=== PATIENT | male | born 1970 | race Caucasian/White ===

== ENCOUNTER → 2018-05-09 | Outpatient (CLI) | payer OTHER ==
--- NOTE | 2018-05-09 13:13 | XR ---
EXAMINATION TYPE: XR lumbosacral spine min 4V DATE OF EXAM: 05/09/2018 CLINICAL HISTORY: Increasing chronic low back pain. TECHNIQUE: Frontal, lateral, and oblique images of the lumbar spine are obtained. COMPARISON: None FINDINGS: There are 5 lumbar type vertebral bodies identified. The lumbar spine shows slight levoco nvex scoliotic curvature without evidence of acute fracture or dislocation. Vertebral body heights an d disk space heights are within normal limits. Mild multilevel anterior spurring is seen. There is mu ltilevel facet arthropathy identified most prominent lower lumbar levels. The oblique images appear within normal limits. Staghorn type calculus left kidney noted filling calyces and pelvis. This confl uent calculus measures over 6 cm long axis. Incidental prominent multilevel spurring in the lower tho racic spine. IMPRESSION: As above. Staghorn type left renal calculus is noted.
== END | disposition home or self-care (01) ==
LOC: RADXRYALE 12:53
PROVIDERS: ATTEND Internal Medicine
DX: M46.96 Unspecified inflammatory spondylopathy, lumbar region (principal); M41.9 Scoliosis, unspecified
CPT/HCPCS: 72110

== ENCOUNTER → 2018-11-14 | Outpatient (CLI) | payer OTHER ==
[2018-11-14 09:05] LABS: Appearance,Urine Clear (Clear); Bilirubin,Urine Negative (Negative); Blood,Urine Negative (Negative); Color,Urine Light Yellow; Glucose,Urine (UA) 4+ (Negative); Ketones,Urine Negative (Negative); Leukocyte Esterase,Urine Moderate (Negative); Mucus,Urine Rare /hpf; Nitrite,Urine Negative (Negative); PH, Urine 6.5 (5.0-8.0); Protein,Urine Trace (Negative); RBC,Urine 5 /hpf (0-5); Urobilinogen,Urine <2.0 mg/dL (<2.0); WBC,Urine 67 /hpf (0-5)
== END | disposition home or self-care (01) ==
LOC: LABPAT 08:08
PROVIDERS: ATTEND Urology
DX: Z01.812 Encounter for preprocedural laboratory examination (principal); N20.0 Calculus of kidney; R31.29 Other microscopic hematuria
CPT/HCPCS: 81001; 87086

== ENCOUNTER → 2018-11-15 | Outpatient (CLI) | payer OTHER | END | disposition home or self-care (01) | LOC: LABPAT 17:16 | PROVIDERS: ATTEND Urology | DX: Z01.810 Encounter for preprocedural cardiovascular examination (principal); N20.0 Calculus of kidney | CPT/HCPCS: 93005 ==

== ENCOUNTER 2018-11-20 06:14 | Observation (INO) | payer OTHER ==
--- NOTE | 2018-11-19 19:51 | P.GSHP ---
History of Present Illness H&P Date: 11/19/18 48 yo male with a large left renal stone[4.7cm] who comes for a left pcnl Alternative treatment have been discussed, Risks and complications have been discussed - Constitutional Constitutional: Reports chronic pain, Denies chills, Denies fever - EENT Eyes: denies blurred vision, denies pain Ears, nose, mouth and throat: Denies headache, Denies sore throat - Cardiovascular Cardiovascular: Denies chest pain, Denies shortness of breath - Respiratory Respiratory: Denies cough, Denies 7 - Gastrointestinal Gastrointestinal: Denies abdominal pain, Denies diarrhea, Denies nausea, Denies vomiting - Genitourinary (Female) Genitourinary: Denies dysuria, Denies hematuria - Genitourinary (Male) Genitourinary: Denies dysuria, Denies hematuria - Musculoskeletal Musculoskeletal: Denies myalgias - Integumentary Integumentary: Denies pruritus, Denies rash - Neurological Neurological: Denies numbness, Denies weakness - Psychiatric Psychiatric: Denies anxiety, Denies depression - Endocrine Endocrine: Denies fatigue, Denies weight change Past Medical History Past Medical History: Diabetes Mellitus, Hyperlipidemia, Hypertension Additional Past Medical History / Comment(s): OFF INSULIN SINCE 08/2018 D/T IMPROVED BS CONTROL. HX KIDNEY STONES, CURRENT LT KIDNEY STONE. History of Any Multi-Drug Resistant Organisms: None Reported Past Surgical History: Tonsillectomy Past Anesthesia/Blood Transfusion Reactions: No Reported Reaction Smoking Status: Never smoker - Past Family History Sister(s) Family Medical History: Cancer Medications and Allergies Home Medications Medication Instructions Recorded Confirmed Type Acetaminophen [Tylenol Arthritis] 650 mg PO Q6H PRN 11/15/18 11/15/18 History Aspirin [Adult Low Dose Aspirin EC] 81 mg PO DAILY 11/15/18 11/15/18 History Atorvastatin Calcium [Lipitor] 40 mg PO DAILY 11/15/18 11/15/18 History Empagliflozin [Jardiance] 25 mg PO DAILY 11/15/18 11/15/18 History Ergocalciferol [Vitamin D2] 50,000 unit PO MO 11/15/18 11/15/18 History Lisinopril [Zestril] 40 mg PO DAILY 11/15/18 11/15/18 History metFORMIN HCL [metFORMIN HCL ER] 750 mg PO PC-SUPPER 11/15/18 11/15/18 History Allergies Allergy/AdvReac Type Severity Reaction Status Date / Time No Known Allergies Allergy Verified 11/15/18 10:39 Surgical - Exam - General well developed, well nourished - Eyes PERRL - ENT no hearing loss - Neck no masses, trachea midline - Respiratory normal expansion, normal respiratory effort - Cardiovascular Rhythm: regular - Abdomen Abdomen: soft, non tender - Genitourinary normal penis with no external lesions, testicles present - Integumentary no rash - Neurologic normal coordination, normal sensation - Musculoskeletal normal gait, normal posture - Psychiatric oriented to time, oriented to person, oriented to place, speech is normal, memory intact Results - Imaging CT scan - abdomen: report reviewed, image reviewed CT scan - pelvis: report reviewed, image reviewed Assessment and Plan Assessment: Impression: Large left renal stone Plan PCNL left
[~2018-11-20 06:14] MED LIST: DEXAMETHASONE SOD PHOSPHATE 10 MG/ML 1 ML VIAL IV ONE; LIDOCAINE 1% 20 ML VIAL (10MG/ML) FOR IV START INTRADERMA PRN; MIDAZOLAM 2 MG/2 ML VIAL IV PRN; ONDANSETRON 4 MG/2 ML VIAL IVP ONE; fentaNYL (PF) 50 MCG/ML 2 ML AMP IV PRN
--- NOTE | 2018-11-20 07:09 | XR ---
EXAMINATION TYPE: XR KUB DATE OF EXAM: 11/20/2018 6:39 AM CLINICAL HISTORY: Left-sided kidney stone, presurgical study. TECHNIQUE: Single supine KUB image of the abdomen is obtained. COMPARISON: None. FINDINGS: Prominent left-sided nephrolithiasis with at least 3 large calculi likely multiple smaller calculi. Superior calculus measures 3.1 cm long axis. Confluent area of stone burden measures 5.8 cm in craniocaudal dimension by 4.5 cm transversely. No definitive right-sided nephrolithiasis. Overall nonobstructive bowel gas pattern. Visualized osseous structures are intact. IMPRESSION: Prominent left-sided nephrolithiasis.
[2018-11-20 07:11] LABS: Glucose,Whole Blood 180 mg/dL (75-99)
[2018-11-20] MEDS: LACTATED RINGERS 1,000 ML IV SCH (07:12)
[2018-11-20] MEDS ORDERED: SUCCINYLCHOLINE CHLORIDE VIAL 200 MG/10 ML VIAL IV ONE (07:52)
[2018-11-20] MEDS ORDERED: LIDOCAINE 1% INJ 10MG/ML (20 ML MDV) ONE (07:52)
[2018-11-20] MEDS ORDERED: MIDAZOLAM 2 MG/2 ML VIAL ONE (07:52)
[2018-11-20] MEDS ORDERED: GLYCOPYRROLATE 0.2 MG/ML 2 ML VIAL ONE (07:52)
[2018-11-20] MEDS ORDERED: ROCURONIUM BROMIDE 10 MG/ML 10 ML VIAL IV ONE (07:52)
[2018-11-20] MEDS ORDERED: PROPOFOL 10 MG/ML 20 ML VIAL IV ONE (07:52)
[2018-11-20] MEDS ORDERED: PHENYLEPHRINE-0.9% NACL SYG 1 MG/10 ML SYRINGE ONE (07:52)
[2018-11-20] MEDS ORDERED: NEOSTIGMINE 1 MG/ML 10 ML VIAL ONE (07:52)
[2018-11-20] MEDS ORDERED: fentaNYL (PF) 50 MCG/ML 2 ML AMP ONE (07:52)
[2018-11-20] MEDS ORDERED: IOHEXOL 350 MG/ML 50 ML in EMPTY BAG 1 BAG IRRIGATION ONE (08:40)
[2018-11-20] MEDS ORDERED: LACTATED RINGERS 1,000 ML IV ONE (10:27)
[2018-11-20] MEDS ORDERED: MAG HYDROX/AL HYDROX/SIMETH 30 ML CUP PO PRN (10:39)
[2018-11-20] MEDS ORDERED: ACETAMINOPHEN TAB 325 MG TAB PO PRN (10:39)
[2018-11-20] MEDS ORDERED: ONDANSETRON 4 MG/2 ML VIAL IVP PRN (10:39)
[2018-11-20] MEDS ORDERED: NALOXONE 0.4 MG/ML 1 ML VIAL IV PRN (10:40)
[2018-11-20] MEDS ORDERED: HYDROmorphone PCA 10 MG/50 ML BAG IV PRN (10:40)
[2018-11-20] MEDS ORDERED: KETOROLAC 30 MG/ML 1 ML VIAL IVP PRN (10:40)
--- NOTE | 2018-11-20 10:49 | P.OP ---
Date of Procedure: 11/20/18 Preoperative Diagnosis: Left renal calculi large (greater than 4 cm) Postoperative Diagnosis: Same Procedure(s) Performed: Cystoscopy with placement of 5-Ivorian occluding balloon catheter, percutaneous nephrostomy (Dr. Paige) percutaneous nephrostolithotomy both ultrasound and laser technique, 20-Ivorian reentry nephrostomy tube placement Anesthesia: ABBIE Surgeon: Lupillo Chang Estimated Blood Loss (ml): 300 Pathology: other (Stone) Condition: stable Disposition: PACU Indications for Procedure: The patient is 48. He is a morbidly obese diabetic. He has a partial branch staghorn calculus over 4 cm in diameter in the left lower pole calyx causing pain he comes for percutaneous nephrostolithotomy Description of Procedure: The patient is brought to the operating suite. He is given a successful general endotracheal anesthesia on the transport gurney. Rolls were placed under his hips and knees placed in a frog position. A sterile prep and drape was administered. Cystoscopy with a 22-Ivorian sheath and Foroblique lens identifies a normal urethra. Prostate is not obstructing. There is a diverticulum the left lateral wall. The left ureteral orifice is identified and intubated with an 025 wire and over the wires passed a 5-Ivorian occluding balloon catheter up into the renal pelvis. A Gomez catheter, 16-Ivorian placed and secured to the ureteral catheter The patient's placed in prone position with care to airways and extremities. Dr. Paige performed percutaneous nephrostomy to a middle pole posterior calyx with some difficulty due to the impaction of the stone. Ithen am able to dilate the tract to 30-Ivorian. Through the middle pole calyx were able to access the stone that went into the renal pelvis and remove this with us. I then am able to access the lower pole calyx. The greater majority of the stone was removed through the rigid scope with the ultrasound anterior calyces in the lower pole. I then remove stone out of minor calyces in the lower pole using the flexible scope and laser. There is one more small calyx, Posterior and medial that I'm unable to access. Whether this is a tubular stones or calyceal diverticulum is indeterminate. Since I'm unable to get the stone I will terminate the procedure. Over the working wire and 20-Ivorian reentry nephrostomy tube was placed. Patient's awake and returned recovery in good condition. Blood loss is 300 mL. He tolerated procedure well.
[2018-11-20] MEDS ORDERED: HYDROmorphone 1 MG/ML 1 ML SYRINGE IVP ONE ×2 (10:56→11:02)
[2018-11-20 11:42] LABS: Glucose,Whole Blood 275 mg/dL (75-99)
[2018-11-20] MEDS ORDERED: INSULIN ASPART (NovoLOG) 100 UNIT/ML VIAL SQ ONE (11:57)
--- NOTE | 2018-11-20 12:38 | FL ---
EXAMINATION TYPE: FL Perc Nephrostomy New Access DATE OF EXAM: 11/20/2018 COMPARISON: NONE HISTORY: Hydronephrosis, ureteral obstruction with staghorn calculus. PROCEDURE: Maximal barrier technique was utilized. The skin overlying the left kidney was localized using fluor oscopy and the overlying skin prepped and draped. Skin shannon was made with a scalpel. Access was gain ed under fluoroscopy following 3 punctures, following placement of a ureteral occlusion balloon by e referring clinician and instillation of air in the renal collecting system with a 21-gauge needle t o the kidney. A suitable posterior calyx was chosen. A 0.018 inch wire was advanced. The access s ite was dilated and subsequently a sheath was advanced into the renal pelvis following dilation with balloon along the tract. Urine returned in the hub of the catheter. The patient underwent nephrolitho lisa by the referring clinician. The patient remained in stable condition without complication. e patient was discharged to observation. IMPRESSION: STATUS POST NEPHROSTOMY PLACEMENT FOR NEPHROLITHOTOMY WITH FLUOROSCOPIC GUIDANCE. THIS PROCEDURE PER FORMED BY THE UNDERSIGNED.
[2018-11-20 13:23] VITALS: BMI 38.2
[2018-11-20 17:17] LABS: Glucose,Whole Blood 176 mg/dL (75-99)
[2018-11-20] MEDS: metFORMIN 500 MG TAB PO SCH (17:37)
[2018-11-20] MEDS: SODIUM CHLORIDE 0.45% 1,000 ML IV SCH ×2 (17:38→22:01)
[2018-11-20 20:19] LABS: Glucose,Whole Blood 199 mg/dL (75-99)
[2018-11-20] MEDS: INSULIN ASPART (NovoLOG) 100 UNIT/ML VIAL SQ SCH (21:33)
[2018-11-20 21:41] LABS: Glucose,Whole Blood 175 mg/dL (75-99)
[2018-11-21 01:29] VITALS: RESP 16
[2018-11-21] MEDS: LACTATED RINGERS 1,000 ML IV SCH (01:54)
[2018-11-21] MEDS: SODIUM CHLORIDE 0.45% 1,000 ML IV SCH (03:56)
[2018-11-21 06:59] LABS: Glucose,Whole Blood 154 mg/dL (75-99)
[2018-11-21] MEDS: INSULIN ASPART (NovoLOG) 100 UNIT/ML VIAL SQ SCH ×2 (07:23→12:51)
[2018-11-21] MEDS: metFORMIN 500 MG TAB PO SCH (07:23)
[2018-11-21] MEDS ORDERED: Empagliflozin [Jardiance] PO SCH (09:00)
[2018-11-21] MEDS ORDERED: ATORVASTATIN 40 MG TAB PO SCH (09:00)
[2018-11-21] MEDS ORDERED: LISINOPRIL 20 MG TAB PO SCH (09:00)
--- NOTE | 2018-11-21 10:16 | P.DS ---
Providers Date of admission: 11/20/18 18:44 Expected date of discharge: 11/21/18 Attending physician: Lupillo Chang Primary care physician: Candice Duran [facility] Course: On the day of admission, the patient underwent a left percutaneous nephr olithotomy. One small calculus could not be accessed, but the stone was otherwise removed. The perioperative course was unremarkable. On the first postoperative day, the patient tolerated breakfast and reported only mild incisional discomfort. He was overall feeling quite well. The Gomez catheter was draining pink tinged urine. The nephrostomy tube bag had been emptied immediately prior to my arrival, and therefore it was difficult to assess the degree of hematuria. Procedures: Left percutaneous nephrolithotomy on 11/20/2018 Patient Condition at Discharge: Good Plan - Discharge Summary Discharge Rx Participant: No New Discharge Prescriptions: New Ketorolac [Toradol] 10 mg PO Q6HR #15 tab No Action metFORMIN HCL [metFORMIN HCL ER] 750 mg PO PC-SUPPER Lisinopril [Zestril] 40 mg PO DAILY Empagliflozin [Jardiance] 25 mg PO DAILY Atorvastatin Calcium [Lipitor] 40 mg PO DAILY Ergocalciferol [Vitamin D2] 50,000 unit PO MO Acetaminophen [Tylenol Arthritis] 650 mg PO Q6H PRN PRN Reason: Pain Aspirin [Adult Low Dose Aspirin EC] 81 mg PO DAILY Discharge Medication List Acetaminophen [Tylenol Arthritis] 650 mg PO Q6H PRN 11/15/18 [History] Aspirin [Adult Low Dose Aspirin EC] 81 mg PO DAILY 11/15/18 [History] Atorvastatin Calcium [Lipitor] 40 mg PO DAILY 11/15/18 [History] Empagliflozin [Jardiance] 25 mg PO DAILY 11/15/18 [History] Ergocalciferol [Vitamin D2] 50,000 unit PO MO 11/15/18 [History] Lisinopril [Zestril] 40 mg PO DAILY 11/15/18 [History] metFORMIN HCL [metFORMIN HCL ER] 750 mg PO PC-SUPPER 11/15/18 [History] Ketorolac [Toradol] 10 mg PO Q6HR #15 tab 11/21/18 [Rx] Follow up Appointment(s)/Referral(s): Lupillo Chang MD [STAFF PHYSICIAN] - 11/25/18 Activity/Diet/Wound Care/Special Instructions: Discharge home with nephrostomy tube. Instruct patient to irrigate nephrostomy tube as needed. Diet as tolerated. Drink plenty of fluids. No lifting or strenuous activity. Discharge Disposition: HOME SELF-CARE
[2018-11-21 12:02] LABS: Glucose,Whole Blood 161 mg/dL (75-99)
[2018-11-21 15:30] VITALS: BP 148/81; PULSE 94; TEMP 97.9
== END 2018-11-21 15:36 | disposition home or self-care (01) ==
LOC: OR 06:14 → 4SSUR 10:40 → OR 18:43 → 4SSUR 18:44
PROVIDERS: ADMIT Urology; ATTEND Urology
DX: N20.0 Calculus of kidney (principal); I10 Essential (primary) hypertension; E78.5 Hyperlipidemia, unspecified; E11.9 Type 2 diabetes mellitus without complications; E66.01 Morbid (severe) obesity due to excess calories; Z68.37 Body mass index [BMI] 37.0-37.9, adult; Z79.82 Long term (current) use of aspirin; Z79.84 Long term (current) use of oral hypoglycemic drugs; Z79.899 Other long term (current) drug therapy; Z87.442 Personal history of urinary calculi; Z80.9 Family history of malignant neoplasm, unspecified
CPT/HCPCS: 94760; 94762; 86900; 86901; 86850; 82365; 50432; 74018; 36415; 50081; G0378 ×2; C1769 ×4; C2628; C1894; J2250; J0330; J1100; J2710; J0690; J2405; J2001; J3010; J1885; J1170 ×2; J2370; J2704; Q9967

== ENCOUNTER → 2019-12-15 | Outpatient (CLI) | payer BC ==
--- NOTE | 2019-12-15 19:25 | XR ---
EXAMINATION TYPE: XR knee limited bilateral DATE OF EXAM: 12/15/2019 COMPARISON: NONE HISTORY: 49-year-old male chronic bilateral knee pain TECHNIQUE: 2 views each side FINDINGS: Moderate loss of cartilage and joint space in the left medial compartment with subchondral sclerosis and marginal spurring. There may be a slight genu varus deformity. Additional degenerative spurring i n the patellofemoral compartment. Small to moderate knee joint effusion. Mild tricompartmental degenerative spurring of the right with a moderate knee joint effusion. No acute fracture, subluxation, or dislocation. IMPRESSION: 1. Bilateral tricompartmental osteoarthrosis, greatest in the left medial compartment. There may be a slight genu varus deformity on the left. 2. Small to moderate bilateral knee joint effusions, right greater than left.
== END | disposition home or self-care (01) ==
LOC: RADXRYALE 13:12
PROVIDERS: ATTEND Internal Medicine
DX: M17.0 Bilateral primary osteoarthritis of knee (principal)

== ENCOUNTER → 2022-05-15 | Outpatient (CLI) | payer BC ==
--- NOTE | 2022-05-15 12:41 | MR ---
EXAMINATION TYPE: MR lumbar spine wo con DATE OF EXAM: 05/15/2022 COMPARISON: Lumbar sacral spine radiograph 05/09/2018. HISTORY: M48.062 lumbar stenosis TECHNIQUE: Multiplanar, multisequence images of the lumbar spine were acquired without IV contrast. FINDINGS: Chronic anterior wedging of the T12 vertebral body. Grade 1 anterolisthesis of L4 on L5 without evide nce of pars defects. No paraspinal masses are identified. Conus medullaris has a normal appearance. Multilevel disc desiccation. T12-L1: Large posterior disc osteophyte complex with facet arthropathy contribute to mild spinal rod l stenosis. Mild bilateral neural foraminal stenosis. L1-L2: Left central disc protrusion without significant spinal canal stenosis. The neural foramina ar e patent bilaterally. L2-L3: Broad-based disc bulge with facet arthropathy. The tube into mild spinal canal stenosis. The n eural foramina are patent bilaterally. L3-L4: Broad-based disc bulge with ligamentum flavum buckling and facet arthropathy contributing to m oderate spinal canal stenosis. The neural foramina are patent bilaterally. L4-L5: Grade 1 anterolisthesis of L4 on L5 with uncovering of the disc. Left subarticular zone disc p rotrusion. Facet arthropathy with ligamentum flavum buckling. There is moderate to severe spinal sten osis. The neural foramina are patent bilaterally. L5-S1: Central disc protrusion superimposed upon a broad-based disc bulge without significant central canal stenosis. The neural foramina are patent bilaterally. IMPRESSION: 1. Moderate to severe spinal canal stenosis at L4-L5 secondary to grade 1 anterolisthesis, left suba rticular zone disc herniation, facet arthropathy and ligament flavum buckling. 2. L1-L2 and L5-S1 disc herniations without significant central canal stenosis. 3. Multilevel degenerative disc disease and osteoarthritic changes as described above.
== END | disposition home or self-care (01) ==
LOC: RADMRIMAIN 10:49
PROVIDERS: ATTEND Psychiatry & Neurology Neurology
DX: M51.27 Other intervertebral disc displacement, lumbosacral region (principal); M47.816 Spondylosis without myelopathy or radiculopathy, lumbar region; M51.36 Other intervertebral disc degeneration, lumbar region; M48.062 Spinal stenosis, lumbar region with neurogenic claudication; M43.16 Spondylolisthesis, lumbar region
CPT/HCPCS: 72148

== ENCOUNTER → 2023-03-29 | Outpatient (CLI) | payer BC ==
--- NOTE | 2023-04-03 07:58 | CT ---
EXAMINATION TYPE: CT left knee - [facility] Protocol DATE OF EXAM: 03/29/2023 COMPARISON: None HISTORY: LT knee pain, pre-surgical. CT DLP: [address] of the left knee for [facility] preoperative procedure. FINDINGS: Moderate to severe degenerative narrowing involving all 3 compartments of the left knee. Associated s pur formation. No fracture or dislocation. Small joint effusion. Mild degenerative narrowing of the l eft hip and mild degenerative changes of the left ankle. No osseous lesions or soft tissue masses. IMPRESSION: 1. As above
== END | disposition home or self-care (01) ==
LOC: RADCTMAIN 15:54
PROVIDERS: ATTEND Orthopaedic Surgery
DX: M17.12 Unilateral primary osteoarthritis, left knee (principal); M21.161 Varus deformity, not elsewhere classified, right knee; M21.162 Varus deformity, not elsewhere classified, left knee; M16.12 Unilateral primary osteoarthritis, left hip; M19.072 Primary osteoarthritis, left ankle and foot

== ENCOUNTER → 2023-04-20 | Outpatient (CLI) | payer BC ==
[2023-04-20 15:59] LABS: Basophils # (A) 0.06 X 10*3/uL (0.00-0.10); Basophils % (A) 0.7 %; Eosinophils # (A) 0.19 X 10*3/uL (0.04-0.35); Eosinophils % (A) 2.1 %; HCT 50.8 % (39.6-50.0); HGB 16.1 g/dL (13.0-17.0); Lymphocytes # (A) 2.35 X 10*3/uL (0.90-5.00); Lymphocytes % (A) 26.1 %; MCH 27.6 pg (27.0-32.0); MCHC 31.7 g/dL (32.0-37.0); MCV 87.1 FL (80.0-97.0); Monocytes # (A) 0.76 X 10*3/uL (0.20-1.00); Monocytes % (A) 8.4 %; NRBC Per 100 WBC 0 X 10*3/uL (0.00-0.01); Neutrophils % (A) 60.9 %; Platelet Count 158 X 10*3/uL (140-440); RBC 5.83 X 10*6/uL (4.40-5.60); RDW 14.1 % (11.5-14.5); WBC 9.02 X 10*3/uL (4.50-10.00)
[2023-04-20 16:15] LABS: ALT 49 U/L (10-49); AST 27 U/L (14-35); Albumin 4.3 g/dL (3.8-4.9); Albumin/Globulin Ratio 1.54 Ratio (1.60-3.17); Alkaline Phosphatase 123 U/L (41-126); BUN/Creat Ratio 28.12 Ratio (12.00-20.00); Blood Urea Nitrogen 22.5 mg/dL (9.0-27.0); Calcium 11.1 mg/dL (8.7-10.3); Carbon Dioxide 24.7 mmol/L (21.6-31.8); Chloride 103 mmol/L (96-109); Globulin 2.8 g/dL (1.6-3.3); Glucose 354 mg/dL (70-110); Potassium 5.1 mmol/L (3.5-5.5); Sodium 140 mmol/L (135-145); Total Bilirubin 0.3 mg/dL (0.3-1.2); Total Protein 7.1 g/dL (6.2-8.2)
[2023-04-20 22:15] LABS: Appearance,Urine Clear (Clear); Bilirubin,Urine Negative (Negative); Blood,Urine Negative (Negative); Color,Urine Yellow (Yellow); Ketones,Urine Trace (Negative); Nitrite,Urine Negative (Negative); PH, Urine 6.5; Specific Gravity,Urine 1.029 (1.001-1.030); Urobilinogen,Urine 0.2 E.U./DL
[2023-04-20 22:20] LABS: Bacteria,Urine None Seen (None Seen)
== END | disposition home or self-care (01) ==
LOC: LABPAT 10:43
PROVIDERS: ATTEND Orthopaedic Surgery
DX: E11.9 Type 2 diabetes mellitus without complications (principal)
CPT/HCPCS: 80053; 81001; 83036; 85025; 87070

== ENCOUNTER 2023-05-30 09:53 | Day surgery (SDC) | payer BC ==
[~2023-05-30 09:53] MED LIST changes: +ALPRAZolam 0.25 MG TAB PO PRN; +ALPRAZolam 0.5 MG TAB PO PRN; +ASPIRIN 325 MG TAB PO ONE; -DEXAMETHASONE SOD PHOSPHATE 10 MG/ML 1 ML VIAL IV ONE; -LIDOCAINE 1% 20 ML VIAL (10MG/ML) FOR IV START INTRADERMA PRN; -MIDAZOLAM 2 MG/2 ML VIAL IV PRN; +NITROGLYCERIN SL TABS 0.4 MG TAB SUBLINGUAL PRN; -ONDANSETRON 4 MG/2 ML VIAL IVP ONE; +SODIUM CHLORIDE 0.9% 1,000 ML in EMPTY BAG 1 BAG IV SCH; -fentaNYL (PF) 50 MCG/ML 2 ML AMP IV PRN
[2023-05-30] MEDS: SODIUM CHLORIDE 0.9% 1,000 ML IV ONE (10:15)
[2023-05-30 10:45] LABS: Glucose,Whole Blood 203 mg/dL (70-110)
[2023-05-30] MEDS: INSULIN ASPART (NovoLOG) 100 UNIT/ML VIAL SQ ONE (10:48)
[2023-05-30 10:59] VITALS: RESP 16; TEMP 98.1
[2023-05-30] MEDS: fentaNYL (PF) 50 MCG/ML 2 ML AMP IVP ONE (13:18)
[2023-05-30] MEDS: MIDAZOLAM 2 MG/2 ML VIAL IVP ONE ×2 (13:18→13:36)
[2023-05-30] MEDS: LIDOCAINE 1% INJ 10MG/ML (20 ML MDV) SQ ONE (13:32)
[2023-05-30] MEDS: VERAPAMIL SYRINGE (5 MG/10 ML) INTRAARTER ONE (13:34)
[2023-05-30] MEDS: HEPARIN SODIUM 1,000 UN/ML (10ML VL) IV ONE (13:36)
[2023-05-30] MEDS: CLOPIDOGREL 75 MG TAB PO ONE (13:47)
[2023-05-30] MEDS: HEPARIN SODIUM 1,000 UN/ML (10ML VL) IVP ONE ×5 (13:47→14:47)
[2023-05-30] MEDS: IOPAMIDOL-370 100ML BTL INJ ONE ×4 (13:49→14:41)
[2023-05-30] MEDS: NITROGLYCERIN 1000MCG/10ML SYRINGE INTRACORON ONE ×3 (13:51→14:28)
[2023-05-30] MEDS ORDERED: PANTOPRAZOLE 40 MG TABLET PO PRN (15:13)
[2023-05-30] MEDS ORDERED: ACETAMINOPHEN TAB 325 MG TAB PO PRN (15:13)
[2023-05-30] MEDS ORDERED: ATROPINE SULFATE 0.1 MG/ML 10ML SYRINGE IV PRN (15:14)
[2023-05-30] MEDS ORDERED: ZOLPIDEM 5 MG TAB PO PRN (15:14)
[2023-05-30] MEDS ORDERED: MAG HYDROX/AL HYDROX/SIMETH 30 ML CUP PO PRN (15:14)
[2023-05-30] MEDS ORDERED: RX INFO: IV CONTRAST WAS GIVEN 1 EACH MISC MISCELLANE PRN (15:14)
--- NOTE | 2023-05-30 16:02 | P.PRCINT ---
Percutaneous Coronary Int. - Percutaneous Coronary Intervention Percutaneous Coronary Intervention: PROCEDURES PERFORMED: Left heart catheterization, bilateral coronary angiography, ultrasound guided arterial access, IVUS RCA, circumflex, PCI PLV with a 3.0 x 8mm Xience EUNICE, cutting balloon angioplasty OM1, PCI proximal OM1 with overlapping 3.25 x 18 and 3.25 x 8mm Xience EUNICE, post dilated with a 3.25mm NC balloon INDICATION: Abnormal stress test CONSENT:I have discussed the risks, benefits and alternative therapies for the above-mentioned procedure and for both sedation/analgesia as well as necessary blood product administration, if indicated, as they pertain to this patient. The patient has indicated understanding and acceptance of the risks and procedures discussed. PROCEDURE: After the risks, benefits and alternatives of the above mentioned procedure explained in detail with the patient, informed consent was obtained. Patient was taken to the catheterization lab and prepped and draped in usual fashion. Ultrasound guidance was used to assess for arterial access. 1% lidocaine was used to anesthetize the right radial artery. A 6-Austrian sheath was placed in the right radial artery using modified Seldinger technique and ultrasound guidance. Left coronary angiography was performed with a 5-Austrian JL 3.5 catheter and right coronary angiography was performed with a 5-Austrian FR5 catheter in various views. A 5-Austrian FR5 catheter was inserted into the left ventricle and pressure measurements were obtained. Ischemia was noted in the inferior and inferolateral wall and therefore decision was made to perform PCI of the PLV and OM1. Heparin was given for ACT greater than 250. A 6-Austrian AL 0.75 guide was used to engage the RCA. A 0.014 BMW wire was advanced in the distal PLV. Predilation was performed with a 2.5 x 8 mm balloon. Next a 3.0 by 8mm Xience EUNICE was placed in the proximal PLV. There was distal edge haziness however on intravascular ultrasound no dissection. Therefore recommended treating medically. Preintervention there was 90% stenosis and KEVIN-3 flow and postintervention there was less than 10% stenosis and KEVIN-3 flow. Next the decision was made to perform PCI of the OM1 branch. A 6-Austrian CLS 3.5 guide was used to engage the left main. A 0.014 BMW wire was advanced in the distal OM1 branch. Predilation was attempted with a 2.75 x 12mm noncompliant balloon however significant watermeloning. Next, intravascular ultrasound was performed which showed reference vessel 3.25 mm. Therefore 3.25 x 15 mm NC balloon again was attempted to predilate the lesion however watermeloning. Therefore cutting balloon angioplasty was performed with a 3.0 x 15 mm balloon. This achieved adequate expansion, predilation. Next a 3.25 x 18 mm Xience EUNICE was placed in the proximal 1 branch. The distal edge of the lesion was not covered and therefore additional 3.25 x 8 mm stent was placed. The stents were postdilated with a 3.25 noncompliant balloon. Repeat intravascular ultrasound showed well-expanded stent with no dissection. There is more distal OM1 40-50% stenosis felt best treated medically. Preintervention there was 90% stenosis and KEVIN-3 flow and postintervention there was less than 10% stenosis and KEVIN-3 flow. The right radial sheath was removed and a TR band was placed with hemostasis achieved. The patient tolerated the procedure well. Patient was transported back to the post catheterization holding area in stable condition. Conscious Sedation: Patient was monitored under the direct supervision of myself for conscious sedation using Versed and fentanyl for a total duration of 70 minutes HEMODYNAMICS: Aorta: 148/72 LV: 141/13, LVEDP 24 SELECTIVE CORONARY ARTERIOGRAPHY: LEFT MAIN: The left main is a large caliber vessel which bifurcates into the LAD and circumflex. There is no significant stenosis. LEFT ANTERIOR DESCENDING CORONARY ARTERY: LAD is a large caliber vessel which wraps around to the apex. There is diffuse mid to distal 40-50% LAD stenosis. Diagonal 2 has a 30-40% stenosis. LEFT CIRCUMFLEX CORONARY ARTERY: Left circumflex is a moderate to large caliber vessel. OM1 has a proximal 90% stenosis followed by mid OM1 50% stenosis. RIGHT CORONARY ARTERY: The right coronary artery is a large caliber vessel which gives off a PDA and PLV branch and is the dominant vessel. There is diffuse proximal mid RCA 20-30% stenosis and a more focal 90% proximal PLV stenosis. FINAL IMPRESSION: 1. CAD as described above including 90% PLV, 90% OM1, 40-50% LAD stenosis 2. S/p PCI PLV with a 3.0 x 8mm Xience EUNICE, cutting balloon angioplasty OM1, PCI proximal OM1 with overlapping 3.25 x 18 and 3.25 x 8mm Xience EUNICE, post dilated with a 3.25mm NC balloon 3. Elevated left sided filling pressures PLAN: 1. Aggressive risk factor modification per most recent ACC/AHA guidelines. 2. Continued dual antiplatelets with aspirin and Plavix for 6 months
[2023-05-30 19:13] VITALS: BP 137/73; PULSE 76
[2023-05-30] MEDS ORDERED: ATORVASTATIN 80 MG TAB PO SCH (21:00)
[2023-05-30] MEDS ORDERED: ATORVASTATIN 10 MG TAB PO SCH (21:00)
[2023-05-31] MEDS ORDERED: lisinopriL 20 MG TAB PO SCH (09:00)
[2023-05-31] MEDS ORDERED: TAMSULOSIN 0.4 MG CAP.ER.24H PO SCH (09:00)
[2023-05-31] MEDS ORDERED: amLODIPine 2.5 MG TAB PO SCH (09:00)
[2023-05-31] MEDS ORDERED: CLOPIDOGREL 75 MG TAB PO SCH (09:00)
[2023-05-31] MEDS ORDERED: ASPIRIN 81 MG PO SCH (09:00)
[2023-05-31] MEDS ORDERED: PROPRANOLOL LA 60 MG CAP.SA.24H PO SCH (09:00)
[2023-06-04] MEDS ORDERED: ERGOCALCIFEROL 1,250 MCG (50,000 IU) CAPSULE PO SCH (09:00)
== END 2023-05-30 18:59 | disposition home or self-care (01) ==
LOC: CATHCVL 09:53
PROVIDERS: ATTEND Internal Medicine
DX: I25.10 Atherosclerotic heart disease of native coronary artery without angina pectoris (principal); E11.9 Type 2 diabetes mellitus without complications; I10 Essential (primary) hypertension; E66.9 Obesity, unspecified; G25.0 Essential tremor; M19.90 Unspecified osteoarthritis, unspecified site; Z79.82 Long term (current) use of aspirin; Z79.84 Long term (current) use of oral hypoglycemic drugs; Z79.899 Other long term (current) drug therapy; Z68.41 Body mass index [BMI] 40.0-44.9, adult; Z83.3 Family history of diabetes mellitus; Z82.49 Family history of ischemic heart disease and other diseases of the circulatory system
CPT/HCPCS: 92978; 92979; 93458; 76937; C9600; C1769 ×2; C1887 ×2; C1894; C1725 ×4; C1753; C1874 ×3; J2250; J2001; J3010; J1644; Q9967; J2305